=== PATIENT | female | born 1975 | race Caucasian/White ===

== ENCOUNTER 2017-07-18 18:17 | Emergency (ER) | payer MEDICAID ==
[~2017-07-18] VITALS: Ht 157.5 cm; Wt 82.2 kg
[2017-07-18 18:30] VITALS: BP 114/88
--- NOTE | 2017-07-18 19:47 | NUR ---
42Y F BIB SELF C/O NASAL CONGESTION, CHEST CONGESTION, PERSISTANT COUGH, ANTERIOR CHESTWALL PAIN WITH HARD COUGHS. HX---DEPRESSION, ANXIETY RX---DEPRESSION MED ??
--- NOTE | 2017-07-18 19:59 | NUR ---
Dr. Robles evaluating patient.
--- NOTE | 2017-07-18 20:21 | NUR ---
Patient discharged with v/s stable. Written and verbal after care instructions given and explained. Patient alert, oriented and verbalized understanding of instructions. Ambulatory with steady gait. All questions addressed prior to discharge. ID band removed. Patient advised to follow up with PMD. Rx of MARIAMA EDGAR, MOTRIN 600MG given. Patient educated on indication of medication including possible reaction and side effects. Opportunity to ask questions provided and answered.
[2017-07-18 20:22] VITALS: BP 122/79
== END 2017-07-18 20:21 | disposition home or self-care (01) ==
LOC: MED 18:17
DX: J20.9 Acute bronchitis, unspecified (principal); F41.9 Anxiety disorder, unspecified; F32.9 Major depressive disorder, single episode, unspecified
CPT/HCPCS: 71045; 99283